=== PATIENT | female | born 2000 | race Caucasian/White ===

== ENCOUNTER → 2020-10-08 07:29 | Outpatient (BNVA) | payer OTHER, SELFPAY | PROVIDERS: Family Provider Nurse Practitioner; PCP Nurse Practitioner; Visit Provider Nurse Practitioner | DX: F41.1 Generalized anxiety disorder (principal); F33.0 Major depressive disorder, recurrent, mild; Z79.899 Other long term (current) drug therapy | CPT/HCPCS: 99214 ==

== ENCOUNTER 2024-03-28 11:11 | Emergency (ER) | payer OTHER, SELFPAY ==
[2024-03-28 11:21] VITALS: BP 111/68; PULSE 104; RESP 15; TEMP 36.8; O2SAT 99; BMI 25.4
--- NOTE | 2024-03-28 11:21 | ECG_ITS ---
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 Measurements Intervals [place] Rate: 120 P: 59 IA: 127 QRS: 27 QRSD: 85 T: 31 QT: 273 QTc: 387 Interpretive Statements SINUS TACHYCARDIA ABNORMAL RHYTHM ECG INTERPRETATION BASED ON A DEFAULT AGE OF 40 YEARS No previous ECG available for comparison Electronically Signed On 03-29-2024 01:11:05 CDT by Ellen Cade M.D. [email or web address]
--- NOTE | 2024-03-28 13:41 | XRR_ITS ---
PROCEDURE INFORMATION: Exam: XR Chest Exam date and time: 03/28/2024 1:54 PM Age: 24 years old Clinical indication: Shortness of breath; Additional info: Chest congestion TECHNIQUE: Imaging protocol: Radiologic exam of the chest. Views: 1 view. COMPARISON: No relevant prior studies available. FINDINGS: Lungs: No consolidation. Pleural spaces: No pleural effusion. No pneumothorax. Heart/Mediastinum: No cardiomegaly. Bones/joints: No acute findings. XR/XR chest 1V portable [id number] IMPRESSION: No acute chest findings.
--- NOTE | 2024-03-28 13:42 | ED_ITS ---
HPI - URI/Sore Throat General: Chief Complaint: Upper Respiratory Infection Stated Complaint: Chest feel heavy, fever Time Seen by Provider: 03/28/24 13:05 Source: patient Mode of arrival: ambulatory Limitations: no limitations History of Present Illness: Patient is a 24-year-old female presenting to the emergency department complaining of upper respiratory symptoms beginning a week ago. States she has felt feverish at home, does not report recording febrile temperature however. She notes scratchiness in her throat, nasal drainage, chest congestion, and bodyaches. She denies any known sick contacts. She reports a history of allergies, has only taken hydroxyzine in the past as needed. She states she has not tried this this time around. She denies any shortness of breath, significant wheezing, chills, or other symptoms. MD elicited complaint: other (Upper respiratory symptoms) Onset (ago): week(s) Consistency: constant Severity: mild Description of mucous: clear Able to tolerate fluids by mouth: Yes Exacerbating factors: nothing Relieving factors: nothing Associated symptoms: Reports fever(s) (Subjective at home); Deny abdominal pain, chills, chest pain, diarrhea, ear or mastoid pain, headache(s), nausea or vomiting Related Data Previous Rx's Medication Instructions Recorded atomoxetine 18 mg capsule 18 mg PO DAILY 30 days #30 caps 12/20/23 hydroxyzine HCl 25 mg tablet 25 mg PO BID PRN sleep or anxiety 12/27/23 30 days #60 tabs cetirizine 10 mg tablet (Zyrtec) 10 mg PO DAILY PRN allergy 03/28/24 symptoms #20 tabs fluticasone propionate 50 2 spray intranasal DAILY PRN 03/28/24 mcg/actuation nasal allergy symptoms #16 grams spray,suspension Allergies Allergy/AdvReac Type Severity Reaction Status Date / Time cephalexin Allergy SWELLING Verified 09/20/23 16:47 Review of Systems General: Reports: 10 or more systems reviewed and unremarkable except in HPI and below Const: Reports: fever(s) (Subjective at home) and body aches; Denies: chills or fatigue Eyes: Denies: change in vision ENMT: Reports: throat pain and nasal discharge; Denies: ear or mastoid pain Card: Denies: chest pain, palpitations, swelling of feet/ankles or lightheadedness Resp: Reports: chest congestion; Denies: dyspnea, productive cough or wheezing GI: Denies: abdominal pain, nausea, vomiting, diarrhea or constipation : Denies: flank pain, difficulty voiding, dysuria or urinary frequency Musc: Denies: neck pain, back pain or joint pain Skin/Breast: Denies: rash Neuro: Denies: headache(s), numbness in extremities or weakness in extremities PFSH ED PFSH: Medical History Psychiatric care Major depressive disorder, recurrent, mild Generalized anxiety disorder Social History Smoking and tobacco/nicotine status: never used tobacco/nicotine Physical Exam Const: COMMON NORMALS: no acute distress and healthy appearing GENERAL APPEARANCE: cooperative, comfortable and well developed HENMT: COMMON NORMALS: normocephalic, atraumatic, Normal external nose present and Normal nasal mucous membranes and turbinates present HEAD & SCALP: normal to inspection, normocephalic and atraumatic FACE & SINUS: normal facial exam and sinuses nontender NOSE: Normal external nose present, Normal nares present, No nasal polyps present and Normal nasal mucous membranes and turbinates present MOUTH: Normal oral and palatal mucosa present THROAT: posterior oropharynx normal and tonsils normal Eye: COMMON NORMALS: EOMs intact bilaterally, conjunctivae normal and normal visual rodriguez by confrontation GENERAL EYE: appearance normal, both eyes and all related structures CONJUNCTIVA: Yes conjunctivae normal Neck/C-Spine: COMMON NORMALS: full ROM, no lymphadenopathy, supple and no meni ngeal signs GENERAL: Yes normal visual inspection Resp: COMMON NORMALS: normal respiratory effort, No use of accessory muscles and clear to auscultation bilaterally EFFORT & INSPECTION: Yes able to speak in complete sentences AUSCULTATION: clear to auscultation bilaterally Cardio: COMMON NORMALS: regular rate, regular rhythm, S1 normal heart sound present and S2 normal heart sound present RATE: regular rate RHYTHM: regular rhythm HEART SOUNDS: S1 normal heart sound present, S2 normal heart sound present, no gallops, no murmurs and no rubs Extremity: COMMON NORMALS: normal to inspection, full ROM and capillary refill normal Neuro: MENINGEAL SIGNS: Yes no meningeal signs Skin: COMMON NORMALS: no rashes or lesions noted GENERAL SKIN EXAM: no rashes or lesions noted Course Vital Signs: Vital signs: Vital Signs Temperature 98.3 F 03/28/24 11:21 Pulse Rate 104 H 03/28/24 11:21 Respiratory Rate 15 03/28/24 11:21 Blood Pressure 111/68 03/28/24 11:21 Pulse Oximetry 99 03/28/24 11:21 Oxygen Delivery Me thod Room Air 03/28/24 11:21 MDM - URI/Sore Throat Medical Decision Making Patient presented with minor symptoms of upper respiratory tract, including subjective fever and allergic type symptoms. She did report a history of allergies has not been taking anything for this. Vitals stable here in the emergency department, slight tachycardia initially this is leveled out throughout the ED stay. Swabs for COVID flu and RSV negative, and strep swab negative. A chest x-ray did not show any focal consolidation or other abnormal findings. I do believe at this time that her symptoms are attributed to allergic rhinitis or other allergies, we will treat with Flonase and Zyrtec. If she worsens instructed to come back, and follow-up with primary care encouraged. Lab Data Radiology Impressions Chest X-Ray 03/28/24 13:41 IMPRESSION: No acute chest findings. Laboratory Results Coronavirus (PCR) Negative (Negative) 03/28/24 13:16 Influenza A (PCR) Negative (Negative) 03/28/24 13:16 Influenza Type B (PCR) Negative (Negative) 03/28/24 13:16 RSV (PCR) Negative (Negative) 03/28/24 13:16 Group A Strep Rapid Negative (Negative) 03/28/24 13:58 All radiology interpretation(s) finalized by discharge Discharge Plan Discharge Patient Disposition: Home Clinical Impression: Allergic rhinitis Qualifiers: Allergic rhinitis trigger: unspecified Allergic rhinitis seasonality: unspecified Qualified Code(s): J30.9 - Allergic rhinitis, unspecified Condition: Stable Prescriptions: New fluticasone propionate 50 mcg/actuation spray,suspension 2 spray intranasal DAILY PRN (Reason: allergy symptoms) Qty: 16 0RF Rx Instructions: administer into each nostril cetirizine [Zyrtec] 10 mg tablet 10 mg PO DAILY PRN (Reason: allergy symptoms) Qty: 20 0RF No Action atomoxetine 18 mg capsule 18 mg PO DAILY 30 Days Qty: 30 3RF hydroxyzine HCl 25 mg tablet 25 mg PO BID PRN (Reason: sleep or anxiety) 30 Days Qty: 60 3RF Discharge Orders: Discharge ED (Routine); Ordered 03/28/24 Ordered By: Abdoul Tyson Referrals: Moira Weber FNP [Primary Care Provider] - Patient Instructions: Allergies (ED) Activity Restrictions/Additional Instructions: Flonase and Zyrtec. Drink plenty of fluids. Tylenol or ibuprofen for any headaches or fevers. Follow-up with primary care with any further evaluation, return for any worsening of symptoms. Coding Level of Care Code ED Dx Board Operator for Addison Higgins
[2024-03-28 14:13] LABS: Rapid Strep A Test Negative (Negative)
[2024-03-28 14:48] LABS: Covid PCR NEGATIVE (Negative); Influenza A NEGATIVE (Negative); Influenza B NEGATIVE (Negative); Respiratory Syncytial Virus Ce NEGATIVE (Negative)
[2024-03-28 15:06] VITALS: BP 112/72; PULSE 99; O2SAT 99
== END 2024-03-28 15:08 | disposition home or self-care (01) ==
PROVIDERS: Emergency Provider Physician Assistant; Family Provider Nurse Practitioner; PCP Nurse Practitioner
DX: J30.9 Allergic rhinitis, unspecified (principal); Z11.52 Encounter for screening for COVID-19
CPT/HCPCS: 0241U; 71045; 87081; 87880; 93005; 99285